=== PATIENT | female | born 1955 | race African-American/Black ===

== ENCOUNTER → 2020-01-06 | Outpatient (CLI) | payer BC ==
[~2020-01-06] MED LIST: ESTRADIOL
--- NOTE | 2020-01-06 12:37 | Diagnostic Imaging Report ---
TECHNIQUE: Magnetic resonance imaging of the RIGHT SHOULDER was performed WITHOUT injected contrast. COMPARISON: None available. HISTORY: Right shoulder pain FINDINGS: MUSCLES AND TENDONS: Rotator Cuff: Tendons: Full thickness tear of the supraspinatus tendon with retraction approximately 3.5 cm. Muscles: No focal muscle atrophy. Biceps Tendon: The long head of the biceps tendon is intact and within the intertubercular groove. GLENOHUMERAL JOINT: Glenoid Labrum: No displaced tear. Articular Cartilage: No focal defect. AC JOINT AND ACROMION: No hypertrophic degenerative changes of the acromioclavicular joint. Subacromial spurring. BONE: Geographic lesion in the posterior aspect of the humeral epiphysis measuring 1.7 cm transverse dimension. The lesion is lobular with hyperintense signal. No acute fracture. SOFT TISSUES: Otherwise, the soft tissues appear unremarkable. IMPRESSION: Full-thickness tear of the supraspinatus tendon with retraction. No atrophy. 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 Given the patient age and the epiphyseal location, a clear cell chondrosarcoma can be considered. Signed by: Dr. Anshu Hunt M.D. on 01/06/2020 12:34 PM
== END ==
LOC: MRI 10:52
PROVIDERS: ATTEND Specialist
DX: M75.101 Unspecified rotator cuff tear or rupture of right shoulder, not specified as traumatic (principal)

== ENCOUNTER → 2020-02-05 | Day surgery (SDC) | payer BC, OTHER ==
--- NOTE | 2020-01-31 13:56 | Diagnostic Imaging Report ---
EXAMINATION: CHEST 2 VIEWS INDICATION: Pre-operative COMPARISON: None FINDINGS: LINES/TUBES:None LUNGS:The lungs are well-inflated. No focal consolidation or pulmonary edema. PLEURA:No pleural effusion or pneumothorax. MEDIASTINUM:The cardiomediastinal silhouette appears normal in size and shape. BONES/SOFT TISSUES:No acute osseous injury. ABDOMEN:No free air under the diaphragm. IMPRESSION: No focal pneumonia or pulmonary edema. Signed by: Lana Valdez MD on 01/31/2020 1:53 PM
[2020-01-31 14:00] LABS: BASOPHILS % 0.8 % (0.0-1.0); EOSINOPHILS # (AUTO) 0.1 (0.0-0.4); EOSINOPHILS % 1.6 % (0.0-6.0); HEMATOCRIT 40.6 % (34.2-44.1); HEMOGLOBIN 13.2 g/dL (12.0-16.0); LYMPHOCYTES # (AUTO) 1.2 (1.0-3.2); LYMPHOCYTES % 32.2 % (18.0-39.1); MEAN CORPUSCULAR HEMOGLOBIN 29.1 pg (28-32); MEAN CORPUSCULAR HGB CONC 32.5 g/dL (31-35); MEAN CORPUSCULAR VOLUME 89.4 fL (81-99); MONOCYTES # (AUTO) 0.4 (0.2-0.8); NEUTROPHILS # (AUTO) 2.1 (2.1-6.9); NEUTROPHILS % 55.4 % (38.7-80.0); PLATELET COUNT 251 x10e3/uL (140-360); RED BLOOD COUNT 4.54 x10e6/uL (3.6-5.1); RED CELL DISTRIBUTION WIDTH 13.2 % (11.7-14.4)
[~2020-02-05] MED LIST changes: +ACETAMINOPHEN 1000 MG/100 ML IV ONE; +ALLEGRA ALLERGY60 MG PO; +CEFAZOLIN SOD 1 GM/NS 50ML 100 ML IV ONE; +EPINEPHRINE 1 MG/ML 30ML VIAL ONE; +ETOMIDATE 2 MG/ML 10 ML INJ IV ONE; +EXCEDRIN MIGRA1 EAC3 PO; +GLYCOPYRROLATE INJ 0.2 MG/ML VIAL ONE; +IBUPROFEN400 MG PO; +LIDOCAINE HCL 2% JELLY 5 ML TUBE ONE; +LIDOCAINE HCL 2% LOCAL INJ 5 ML SDV VIAL INJ ONE; +METOCLOPRAMIDE HCL 10 MG/2ML VIAL ONE; +NEOSTIGMINE 1 MG/ML 10ML VIAL ONE; +ONDANSETRON HCL INJ 2MG/ML 2ML 2 MG/ML VIAL ONE; +PROPOFOL IV EMULSION 10 MG/ML 20 ML VIAL ONE; +ROCURONIUM BROMIDE 10 MG/ML 5ML VIAL IV ONE; +SEVOFLURANE INHAL SOLN 250 ML PEN BTL ONE
[2020-02-05 16:00] VITALS: BP 130/76
--- NOTE | 2020-02-06 16:40 | Operative Report ---
DATE OF PROCEDURE: 02/05/2020 SURGEON: Ronen Duffy MD PREOPERATIVE DIAGNOSES: 1. Right rotator cuff tear. 2. Right AC joint arthritis. POSTOPERATIVE DIAGNOSES: 1. Chronic right rotator cuff tear. 2. Right shoulder synovitis. 3. 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 4. Right AC joint arthritis. OPERATIONS AND PROCEDURE PERFORMED: The patient underwent right shoulder examination under anesthesia, right shoulder arthroscopy, right shoulder debridement of synovitis, right shoulder chondroplasty of the humeral head, right shoulder arthroscopic rotator cuff reconstruction, right shoulder arthroscopic subacromial decompression and acromioplasty, and right shoulder arthroscopic distal clavicle resection. ALUMNI RELATIONS MANAGER: There was no entry level administrative assistant. ANESTHESIA: General endotracheal intubation anesthesia as well as regional block. IV FLUIDS: Per the anesthesia record. BLOOD LOSS: Less than 5 mL. COMPLICATIONS: None. BRIEF DESCRIPTION OF THE PATIENT'S OPERATIVE PROCEDURE: Ms. Mccall was taken to the operating room and placed in supine position on the operating table. Following induction of general anesthesia as well as endotracheal intubation, the patient's right upper extremity was examined under anesthesia. She was found to have full passive range of motion of the shoulder joint. There was no evidence of instability. There were no gross abnormalities. The patient's upper extremity was prepped and draped in standard surgical fashion. Standard posterior lateral and anterior port was created without difficulty. The scope was placed in the shoulder joint atraumatically. Examination of glenohumeral articulation demonstrated chondromalacia of the humeral head. There were no loose bodies in the shoulder joint. There was a full-thickness retracted rotator cuff tear. There was also diffuse synovitis in the shoulder joint. A shaver was placed in the shoulder joint and a chondroplasty of the humeral head was undertaken. The synovitis was also debrided at this time. The insertion site for the rotator cuff injury was also debrided to a bleeding bony bed. The shoulder was inflated with sterile normal saline. The scope was placed in the subacromial space. Significant bursal inflammation was encountered. A lateral portal was created through an outside-in technique. A shaver was used to perform a bursectomy. Examination of the bursal surface of the rotator cuff demonstrated a delaminating tear with significant retraction. The rotator cuff was debrided. The insertion site for the rotator cuff was debrided further to a bleeding bony bed. A single suture anchor was inserted into the greater tuberosity. The rotator cuff was found to be relatively immobile. An elevator was used to attempt to free up and mobilize the rotator cuff injury. This resulted in minor improvements in the mobility of the rotator cuff tendon. The suture arms from the suture anchor were woven through the rotator cuff tissue. The rotator cuff tissue was then advanced into the greater tuberosity with the arm in an abducted position. This resulted in reapproximation of the rotator cuff into its normal insertion site. An aggressive acromioplasty was then performed. The coracoacromial ligament was also resected at this time. The arm was placed in range of motion and the rotator cuff was found to not impinge on the undersurface of the acromion. Attention was then turned to the acromioclavicular joint. The anterior portal was carefully transferred into the subacromial space. A shaver was used to isolate the acromioclavicular joint. Shaver was then transferred to the anterior portal and a 1 cm section of the distal clavicle resected at this time. The scope was transferred to the anterior portal to confirm complete resection of the distal clavicle. The shoulder was then deflated with sterile normal saline. The portal sites were closed and sterile dressings were applied. The patient was provided a shoulder immobilizer, awakened, and taken to the postanesthesia care unit in stable condition. MD ALFREDITO Finney/IGLESIA /[id number]
== END | disposition home or self-care (01) ==
LOC: OR 13:59
PROVIDERS: ATTEND Specialist
DX: M75.121 Complete rotator cuff tear or rupture of right shoulder, not specified as traumatic (principal); M19.011 Primary osteoarthritis, right shoulder; M65.811 Other synovitis and tenosynovitis, right shoulder; M94.211 Chondromalacia, right shoulder; R22.31 Localized swelling, mass and lump, right upper limb; Z88.6 Allergy status to analgesic agent; Z91.040 Latex allergy status; Z79.82 Long term (current) use of aspirin; Z68.31 Body mass index [BMI] 31.0-31.9, adult
CPT/HCPCS: 29824; 29826; 29827; 36415; 71046; 85025; 93005; C1713; J0131; J0690; J2001 ×2; J2405; J2704; J2710; J2765; U0002

== ENCOUNTER 2020-05-08 09:00 | Outpatient (RCR) | payer BC ==
[~2020-05-08 09:00] MED LIST changes: -ACETAMINOPHEN 1000 MG/100 ML IV ONE; -CEFAZOLIN SOD 1 GM/NS 50ML 100 ML IV ONE; -EPINEPHRINE 1 MG/ML 30ML VIAL ONE; -ETOMIDATE 2 MG/ML 10 ML INJ IV ONE; -GLYCOPYRROLATE INJ 0.2 MG/ML VIAL ONE; -LIDOCAINE HCL 2% JELLY 5 ML TUBE ONE; -LIDOCAINE HCL 2% LOCAL INJ 5 ML SDV VIAL INJ ONE; -METOCLOPRAMIDE HCL 10 MG/2ML VIAL ONE; -NEOSTIGMINE 1 MG/ML 10ML VIAL ONE; -ONDANSETRON HCL INJ 2MG/ML 2ML 2 MG/ML VIAL ONE; -PROPOFOL IV EMULSION 10 MG/ML 20 ML VIAL ONE; -ROCURONIUM BROMIDE 10 MG/ML 5ML VIAL IV ONE; -SEVOFLURANE INHAL SOLN 250 ML PEN BTL ONE
== END 2020-05-09 ==
LOC: OT 09:00
PROVIDERS: ATTEND Specialist
DX: S46.001D Unspecified injury of muscle(s) and tendon(s) of the rotator cuff of right shoulder, subsequent encounter (principal); M25.511 Pain in right shoulder; M25.611 Stiffness of right shoulder, not elsewhere classified; R53.1 Weakness

== ENCOUNTER 2020-06-03 13:00 | Outpatient (RCR) | payer BC | END 2020-06-08 | LOC: OT 13:00 | PROVIDERS: ATTEND Specialist | DX: S46.001D Unspecified injury of muscle(s) and tendon(s) of the rotator cuff of right shoulder, subsequent encounter (principal); M25.511 Pain in right shoulder; M25.611 Stiffness of right shoulder, not elsewhere classified; R53.1 Weakness ==

== ENCOUNTER 2020-07-08 14:00 | Outpatient (RCR) | payer BC | END 2020-07-09 | LOC: OT 14:00 | PROVIDERS: ATTEND Specialist | DX: M75.101 Unspecified rotator cuff tear or rupture of right shoulder, not specified as traumatic (principal) ==

== ENCOUNTER 2020-08-07 10:00 | Outpatient (RCR) | payer BC | END 2020-08-09 | LOC: OT 10:00 | PROVIDERS: ATTEND Specialist | DX: M75.101 Unspecified rotator cuff tear or rupture of right shoulder, not specified as traumatic (principal) ==